=== PATIENT | male | born 1960 | race African-American/Black ===

== ENCOUNTER 2020-01-29 08:31 | Emergency (ER) | payer OTHER ==
[2020-01-29] MEDS ORDERED: Sodium Chloride 0.9% 1,000 ML IV ONE (08:48)
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
[2020-01-29 09:23] LABS: BLOOD UREA NITROGEN,BUN 18 mg/dL (7.0-18.0); CARBON DIOXIDE,CO2 28.1 mmol/L (21.0-32.0); CHLORIDE,CL 101 mmol/L (98-107); GLUCOSE RANDOM 127 mg/dL (74-106); POTASSIUM,K 3.8 mmol/L (3.5-5.1); SODIUM,NA 138 mmol/L (136-148)
[2020-01-29] MEDS ORDERED: Iopamidol 755 MG/ML 200 ML Multipack Bottle IVPUSH ONE (10:03)
--- NOTE | 2020-01-29 10:25 | CT ---
CT chest Technique: Multiple axial sections through the chest were obtained. Intravenous contrast was utilized. Reconstructed coronal and sagittal images were obtained. Comparison: No prior chest imaging is available. Findings: Mediastinum and hilar regions appear within normal limits. No mediastinal hematoma is seen. No adenopathy is noted. No pericardial thickening is identified. Visualized upper abdominal structures shows no discrete abnormality. Lungs are clear with no acute parenchymal change. Bone window settings were reviewed. Prominent cystic change is noted within the posterolateral right humeral head. This appears to be chronic. Reconstructed images of the sternum show normal discrete fracture. No discrete rib fracture is appreciated. Vertebral body heights are maintained. Disc space narrowing is noted within the mid thoracic spine. Impression: 1. Findings as noted above. 2. Nothing acute is appreciated on CT study of the chest. Diagnostic code #2 This report was dictated in MDT
--- NOTE | 2020-01-29 10:28 | CT ---
CT abdomen and pelvis Technique: Multiple axial sections were obtained from above the dome of the diaphragm inferiorly through the pubic symphysis. Intravenous contrast was utilized. No oral contrast has been given. Comparison: No prior abdominal imaging. Findings: Liver shows no focal parenchymal abnormality. Spleen appears within normal limits. Adrenal glands show no nodule. Kidneys show symmetric contrast enhancement without hydronephrosis or mass. Pancreas appears within normal limits. Gallbladder contains no calcified gallstones. Aorta shows no aneurysm. No retroperitoneal adenopathy or mesenteric abnormalities are seen. No pelvic mass or adenopathy is noted. No free fluid or inflammatory change is appreciated. Appendix is felt to be partially visualized and appears to be normal in size. Bone window settings were reviewed. No acute osseous finding is appreciated. Impression: 1. Nothing acute is appreciated on CT study of the abdomen and pelvis. Diagnostic code #1 This report was dictated in MDT
[2020-01-29] MEDS: Ibuprofen 600 MG Tab PO ONE ×2 (11:09→11:10)
== END 2020-01-29 11:07 | disposition home or self-care (01) ==
LOC: MW.ED 08:31
DX: S20.219A Contusion of unspecified front wall of thorax, initial encounter (principal); V49.9XXA Car occupant (driver) (passenger) injured in unspecified traffic accident, initial encounter
CPT/HCPCS: 36415; 71260; 74177; 80053; 85025; 99285; J7030; Q9967; 99284; A9270-GY

== ENCOUNTER 2020-02-20 15:46 | Emergency (ER) | payer SELFPAY ==
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
[2020-02-20 17:02] LABS: BLOOD UREA NITROGEN,BUN 19 mg/dL (7.0-18.0); CARBON DIOXIDE,CO2 25.4 mmol/L (21.0-32.0); CHLORIDE,CL 102 mmol/L (98-107); GLUCOSE RANDOM 206 mg/dL (74-106); POTASSIUM,K 3.8 mmol/L (3.5-5.1); SODIUM,NA 137 mmol/L (136-148)
--- NOTE | 2020-02-20 17:18 | CR ---
Chest: 2 views of the chest were obtained. Comparison: Previous chest CT study of 01/29/20, no prior chest x-ray is available. Findings: Heart size is mildly prominent. Upper mediastinum is normal. Lungs are clear. Possible mild pulmonary vascular congestion is present. Bony structures are unremarkable for the patient's age. No pleural effusions are seen. Impression: 1. Heart size is mildly prominent. 2. Possible mild pulmonary vascular congestion. Diagnostic code #3 This report was dictated in MDT
== END 2020-02-20 18:00 | disposition home or self-care (01) ==
LOC: MW.ED 15:46
DX: R07.89 Other chest pain (principal)
CPT/HCPCS: 36415; 71046; 71046-26; 80053; 84484; 85025; 93005; 99283; 99285-25

== ENCOUNTER 2020-07-12 17:45 | Emergency (ER) | payer OTHER ==
--- NOTE | 2020-07-12 19:07 | CR ---
INDICATION: Fall, ankle injury TECHNIQUE: Ankle radiograph 2 views left COMPARISON: None FINDINGS: Bone: No acute fractures or aggressive bone lesions are identified. A corticated ossicle is noted near the medial malleolus. Joint: The ankle mortise joint and the visualized hindfoot joints are unremarkable in appearance. No significant ankle effusion is seen. Soft tissue: The Kager fat pad and the Achilles` tendon is normal in appearance. No radiopaque foreign bodies are seen. IMPRESSION: 1. No acute osseous injuries or abnormalities are noted. Dictated by: Bert Khan MD @ 07/12/2020 19:04:59 (Electronically Signed)
--- NOTE | 2020-07-12 19:09 | CR ---
INDICATION: Fall, foot injury TECHNIQUE: Foot radiograph 2 views left COMPARISON: 04/02/2015 FINDINGS: Bone: A small linear density is noted along the anterior lateral calcaneus. Remote fracture deformity is noted at the base of the 5th metatarsal at fracture site seen on prior exam. Joint: The visualized hindfoot, midfoot, and forefoot joints are unremarkable in appearance. No significant ankle effusion is seen. Soft tissue: Unremarkable. No radiopaque foreign bodies are seen. IMPRESSION: 1. A small linear density is noted along the anterior lateral calcaneus. Correlation with physical exam is recommended to exclude an avulsion fracture. Dictated by: Bert Khan MD @ 07/12/2020 19:06:49 (Electronically Signed)
--- NOTE | 2020-07-12 20:06 | EDM.PDOC ---
ED [facility] GENERAL MEDICAL PROBLEM - General Chief Complaint: Lower Extremity Injury/Pain Stated Complaint: ankle injury Time Seen by Provider: 07/12/20 17:55 Source of Information: Reports: Patient History Limitations: Reports: No Limitations - History of Present Illness INITIAL COMMENTS - FREE TEXT/NARRATIVE: 59-year-old male presents with left midfoot pain after miss stepping on a step just prior to arrival. Pain is moderate, constant, sharp, exacerbated with weightbearing, alleviated with immobilization, nonradiating. ROS: A 10-point review of systems, other than pertinent positives and negatives as stated per HPI, is otherwise negative Past medical history: No additional pertinent history Past Surgical history: No additional pertinent history Social history: No additional pertinent history Family history: No additional pertinent history PHYSICAL EXAM General: AOx4, GCS = 15, mild distress HEENT: dry mucous membrane Neck: supple, no meningismus, no Kernig or Brudzinski Cardiac: S1S2 RRR Respiratory: CTAB, no crackles or rales, no wheezing Abdomen: Soft, nontender, no rebound or guarding, nondistended, no pulsatile mass. Back: nontender Musculoskeletal: NVI distally, swelling to left 4th MT, no ttp bilateral malleolus or prox fibula. Neuro: No focal deficits. left foot Pain Score (Numeric/FACES): 8 - Related Data Allergies Allergy/AdvReac Type Severity Reaction Status Date / Time No Known Allergies Allergy Verified 07/12/20 18:06 Home Meds: Home Meds metFORMIN [Glucophage XR] 1 tab PO BID 01/29/20 [History] Acetaminophen/oxyCODONE [Percocet 325-5 MG] 1 each PO Q6H PRN #12 tab 07/12/20 [Rx] Past Medical History - Past Health History Medical/Surgical History: Denies Medical/Surgical History HEENT History: Reports: None Cardiovascular History: Reports: None Respiratory History: Reports: None Gastrointestinal History: Reports: None Genitourinary History: Reports: None Musculoskeletal History: Reports: None Neurological History: Reports: None Psychiatric History: Reports: None Endocrine/Metabolic History: Reports: Diabetes, Type II Hematologic History: Reports: None Immunologic History: Reports: None Oncologic (Cancer) History: Reports: None Dermatologic History: Reports: None - Infectious Disease History Infectious Disease History: Reports: None - Past Surgical History Head Surgeries/Procedures: Reports: None HEENT Surgical History: Reports: None Cardiovascular Surgical History: Reports: None Respiratory Surgical History: Reports: None GI Surgical History: Reports: None Male Surgical History: Reports: None Endocrine Surgical History: Reports: None Neurological Surgical History: Reports: None Musculoskeletal Surgical History: Reports: None Oncologic Surgical History: Reports: None Dermatological Surgical History: Reports: None Social & Family History - Family History Family Medical History: Noncontributory - Tobacco Use Tobacco Use Status *Q: Never Tobacco User - Caffeine Use Caffeine Use: Reports: None - Recreational Drug Use Recreational Drug Use: No Review of Systems - Review of Systems Review Of Systems: Comprehensive ROS is negative, except as noted in HPI. (see dictation) ED EXAM, GENERAL - Physical Exam Exam: See Below (see dictation) ED TRAUMA EXTREMITY PROCEDURES - Splinting Left Lower Extremity Pre-Procedure NV Status: Normal Post-Procedure NV Status: Normal Applied & Form Fitted By: Nurse Provider Post-Splint Application NV Check: NV Status Normal, Good Position Complications: No Progress/Comments: Splint: walking boot Indication: left anterior lateral calcanel fracture How will this benefit patient: immobilization Duration: 7 days Course - Vital Signs Last Recorded V/S: Last Vital Signs Temp 97.2 F 07/12/20 18:01 Pulse 94 07/12/20 18:01 Resp 14 07/12/20 18:01 BP 134/88 07/12/20 18:01 Pulse Ox 98 07/12/20 18:01 - Re-Assessments/Exams Free Text/Narrative Re-Assessment/Exam: 07/12/20 20:02 After splinting and crutches in the ER, the patient improved and is currently stable for discharge. I performed a repeat exam and did not appreciate new abnormal findings. Patient exhibits normal vital signs. I advised the patient to return to the ER for reevaluation if symptoms worsened, including fever, worsening pain, or any other worrisome symptoms. I instructed the patient to follow up with the orthopedic clinic within 1 week. MEDICAL DECISION MAKING: I reviewed the patients past medical records, lab and radiographic findings. I discussed the case with the patient. My differential diagnosis included: Fracture, dislocation, Lisfranc fracture Departure - Departure Time of Disposition: 20:09 Disposition: Home, Self-Care 01 Condition: Good Clinical Impression: Calcaneal fracture Qualifiers: Encounter type: initial encounter Calcaneus location: anterior process Fracture type: closed Laterality: left - Discharge Information *PRESCRIPTION DRUG MONITORING PROGRAM REVIEWED*: Not Applicable *COPY OF PRESCRIPTION DRUG MONITORING REPORT IN PATIENT TYLER: Not Applicable Prescriptions: Acetaminophen/oxyCODONE [Percocet 325-5 MG] 1 each PO Q6H PRN #12 tab PRN Reason: Pain (Moderate 4-6) Instructions: Cast or Splint Care, Adult, [id number] Referrals: PCP,None [Primary Care Provider] - Additional Instructions: The need for follow-up, as well as the timing and circumstances, are variable depending upon the specifics of your emergency department visit. If you don't have a primary care physician on staff, we will provide you with a referral. We always advise you to contact your personal physician following an emergency department visit to inform them of the circumstance of the visit and for follow-up with them and/or the need for any referrals to a consulting specialist. The emergency department will also refer you to a specialist when appropriate. This referral assures that you have the opportunity for follow-up care with a specialist. All of these measure are taken in an effort to provide you with optimal care, which includes your follow-up. Under all circumstances we always encourage you to contact your private physician who remains a resource for coordinating your care. When calling for follow-up care, please make the office aware that this follow-up is from your recent emergency room visit. If for any reason you are refused follow-up, please contact the [facility] Emergency Department at and asked to speak to the emergency department charge nurse. If you do not have a primary care doctor, please follow up with the clinics below within 3-5 days. Orthopedic Clinic [facility] - Orthopedic Clinic [address], [address] [place] [address] Sepsis Event Note (ED) - Evaluation Sepsis Screening Result: No Definite Risk - Focused Exam Vital Signs: Vital Signs Temp Pulse Resp BP Pulse Ox 07/12/20 18:01 97.2 F 94 14 134/88 98
== END 2020-07-12 21:21 | disposition home or self-care (01) ==
LOC: MW.ED 17:45
DX: S92.022A Displaced fracture of anterior process of left calcaneus, initial encounter for closed fracture (principal); E11.9 Type 2 diabetes mellitus without complications; Z79.84 Long term (current) use of oral hypoglycemic drugs; X58.XXXA Exposure to other specified factors, initial encounter
CPT/HCPCS: 29515; 73600-26-LT; 73600-LT; 73620-26-LT; 73620-LT; 99283; 99283-25